=== PATIENT | female | born 1960 | race Caucasian/White ===

== ENCOUNTER 2019-11-16 16:10 | Outpatient (CLI) | payer OTHER, SELFPAY ==
--- NOTE | ~2019-11-16 | CT_ITS ---
EXAMINATION: CT lung screening DATE: 11/16/2019 16:32 INDICATION: Personal history of tobacco dependence, prior smoker with 35 pack year history TECHNIQUE: Computed tomography (CT) of the chest was performed without intravenous contrast. The dose -length product (DLP) was 155.70 mGy-cm. Automated exposure control and iterative reconstruction tech Loehmann'sque were employed. COMPARISON: None FINDINGS: There is mild emphysema. No suspicious pulmonary nodules are identified. Minimal airspace o pacities are present in the lingula and left lower lobe which are likely infectious or inflammatory. There is no pleural effusion or pneumothorax. No pathologically enlarged thoracic lymph nodes are hardy ntified. The heart size is normal. There is mild thoracic spondylosis. IMPRESSION: 1. Lung-RADS category 1: Negative. Continue annual screening with noncontrast low-dose chest CT in 12 months. Reviewed, dictated and finalized at location A. 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 Lung-RADS category 1: Negative. Continue annual screening with noncontrast l ow-dose chest CT in 12 months.
== END 2019-11-16 16:11 | disposition home or self-care (01) ==
LOC: ANHIMG 16:13
PROVIDERS: PCP Emergency Medicine; Visit Provider Family Medicine
DX: Z12.2 Encounter for screening for malignant neoplasm of respiratory organs (principal); Z87.891 Personal history of nicotine dependence
CPT/HCPCS: G0297

== ENCOUNTER 2019-12-29 16:10 | Outpatient (CLI) | payer OTHER, SELFPAY ==
--- NOTE | ~2019-12-29 | MM_ITS ---
EXAMINATION: MM screening [facility] BI w alexis HISTORY: Screening mammogram TECHNIQUE: Craniocaudal and mediolateral oblique 3-D tomosynthesis images were obtained and synthetic 2-D images were generated. CAD analysis was submitted and interpreted. COMPARISON: No prior mammogram is available for comparison at this institution. BREAST PARENCHYMAL COMPOSITION: There are scattered areas of fibroglandular density. FINDINGS: Stable fibroglandular asymmetry. There is no evidence of suspicious mass, calcification, or architectural distortion to suggest malignancy in either breast. There has been no suspicious inte rval change. IMPRESSION: 1. No mammographic evidence of malignancy. 2. Recommend routine screening mammography in one year. BI-RADS Category 2: Benign finding(s). Reviewed, dictated and finalized at location A. HAND FISHING VESSEL
== END 2019-12-29 16:11 | disposition home or self-care (01) ==
LOC: ANHIMG 16:13
PROVIDERS: PCP Emergency Medicine; Visit Provider Emergency Medicine
DX: Z12.31 Encounter for screening mammogram for malignant neoplasm of breast (principal)
CPT/HCPCS: 77063; 77067

== ENCOUNTER 2021-02-06 16:14 | Outpatient (CLI) | payer OTHER, SELFPAY | END 2021-02-06 16:15 | disposition home or self-care (01) | LOC: ANHCOVIDVC 16:14 | PROVIDERS: PCP Emergency Medicine | DX: Z23 Encounter for immunization (principal) | CPT/HCPCS: 0001A; 91300 ==

== ENCOUNTER 2021-02-27 16:15 | Outpatient (CLI) | payer OTHER, SELFPAY | END 2021-02-27 16:16 | disposition home or self-care (01) | LOC: ANHCOVIDVC 16:15 | PROVIDERS: PCP Emergency Medicine | DX: Z23 Encounter for immunization (principal) | CPT/HCPCS: 0002A; 91300 ==

== ENCOUNTER 2021-04-21 08:20 | Outpatient (CLI) | payer OTHER, SELFPAY ==
--- NOTE | ~2021-04-21 | XR_ITS ---
EXAMINATION: XR chest 2V DATE: 04/21/2021 08:32 INDICATION: Shortness of breath TECHNIQUE: PA and lateral views of the chest are obtained. COMPARISON: 09/13/2019 FINDINGS: The lungs are free of acute opacities. There is no pleural effusion or pneumothorax. The ca rdiomediastinal silhouette is normal. There is mild thoracic spondylosis. IMPRESSION: 1. No acute cardiopulmonary abnormality. Reviewed, dictated and finalized at location A.
== END 2021-04-21 08:21 | disposition home or self-care (01) ==
PROVIDERS: PCP Emergency Medicine; Visit Provider Nurse Practitioner Family
DX: R06.02 Shortness of breath (principal); R09.89 Other specified symptoms and signs involving the circulatory and respiratory systems; J43.1 Panlobular emphysema
CPT/HCPCS: 71046

== ENCOUNTER 2021-06-12 16:48 | Outpatient (CLI) | payer OTHER, SELFPAY ==
--- NOTE | ~2021-06-12 | MM_ITS ---
EXAMINATION: MM screening [facility] BI w alexis HISTORY: Screening mammogram TECHNIQUE: Craniocaudal and mediolateral oblique 3-D tomosynthesis images were obtained and synthetic 2-D images were generated. CAD analysis was submitted and interpreted. COMPARISON: 12/29/2019, 08/27/2018, 08/13/2017 BREAST PARENCHYMAL COMPOSITION: There are scattered areas of fibroglandular density. FINDINGS: There is no evidence of suspicious mass, calcification, or architectural distortion to sugg est malignancy in either breast. There has been no suspicious interval change. IMPRESSION: 1. No mammographic evidence of malignancy. 2. Recommend routine screening mammography in one year. BI-RADS Category 1: Negative Reviewed, dictated and finalized at location A.
== END 2021-06-12 16:49 | disposition home or self-care (01) ==
LOC: ANHIMG 16:49
PROVIDERS: PCP Emergency Medicine; Visit Provider Emergency Medicine
DX: Z12.31 Encounter for screening mammogram for malignant neoplasm of breast (principal)
CPT/HCPCS: 77063; 77067

== ENCOUNTER 2021-09-19 15:43 | Outpatient (CLI) | payer OTHER, SELFPAY ==
--- NOTE | ~2021-09-19 | XR_ITS ---
EXAMINATION: XR foot RT min 3V DATE: 09/19/2021 16:05 INDICATION: Right foot pain. TECHNIQUE: 4 views of right foot were obtained. COMPARISON: None. FINDINGS: Bone alignment is normal. No acute fracture. There is mild osteoarthritis of second metatar sophalangeal joint and some the interphalangeal joints. There are enthesophytes at the posterior and plantar aspects of calcaneal tuberosity. IMPRESSION: 1. Mild polyarticular osteoarthritis. Reviewed, dictated and finalized at location A.
== END 2021-09-19 15:44 | disposition home or self-care (01) ==
LOC: ANHIMG 15:49
PROVIDERS: PCP Family Medicine; Visit Provider Nurse Practitioner
DX: M19.071 Primary osteoarthritis, right ankle and foot (principal)
CPT/HCPCS: 73630

== ENCOUNTER 2022-04-02 16:56 | Outpatient (CLI) | payer OTHER, SELFPAY ==
--- NOTE | ~2022-04-02 | DEXA_ITS ---
Bone Density Report Name: EARL ROCA Age: 61 Sex: Female Ethnicity: White Date of : 1960 Indication: postmenopausal; screening for osteoporosis; prior fracture; Referring Provider: NUBIA BRADFORD Study: Bone densitometry was performed. Exam Date: April 02, 2022 Accession number: [id number] Bone Density: Region BMD T-score Z-score Classification AP Spine(L1-L4) 0.986 -0.6 1.0 Normal Femoral Neck (Left) 0.708 -1.3 0.1 Osteopenia Total Hip (Left) 0.964 0.2 1.3 Normal Femoral Neck (Right) 0.720 -1.2 0.2 Osteopenia Total Hip (Right) 0.949 0.1 1.1 Normal Total Hip Mean 0.956 0.2 1.2 Normal World Health Organization criteria for BMD impression classify patients as: Normal (T-score at or above -1.0), Osteopenia (T-score between -1.0 and -2.5), or Osteoporosis (T-score at or below -2.5). 10-year Fracture Risk(1): Major Osteoporotic Fracture 15% Hip Fracture 1.3% Reported Risk Factors: [place] (), Neck BMD=0.708, BMI=35.7, previous fracture, alcohol use (1) FRAX(R) Version 3.08. Fracture probability calculated for an untreated patient. Fracture probability may be lower if the patient has received treatment. Previous Exams: Region Exam Age BMD T-score BMD Change BMD Change Date g/cm2 vs Baseline vs Previous AP Spine (L1-L4) 04/02/2022 61 0.986 -0.6 -0.012 (-1.2%) -0.012 (-1.2%) 03/22/2019 58 0.998 -0.4 Total Hip(Left) 04/02/2022 61 0.964 0.2 0.000 (0.0%) 0.000 (0.0%) 03/22/2019 58 0.964 0.2 Total Hip(Right) 04/02/2022 61 0.949 0.1 0.046 (5.1%)* 0.046 (5.1%)* 03/22/2019 58 0.903 -0.3 *Denotes significance at 95% confidence level, LSC for AP Spine = 0.022 g/cm2, LSC for Total Hip = 0.027 g/cm2 Clinical Information Provided by Patient: Has had a low trauma fracture Has 3 or more alcoholic drinks per day Has used the following medications: Vitamin D, Calcium Patient maximum height was 67 Menopause Age: 49 No regular weight bearing exercise Drinks caffeinated beverages Onset of menses at age 12 Number of children 0 Impression: The patient has low bone mass, based on the Left Femoral Neck T-score. The patient has an estimated ten-year risk of hip fracture of 1.3% and an estimated ten-year risk of major fracture of 15%, based on the WHO FRAX algorithm. The patient has risk factors, including: excessive alcohol use, previous fracture. No significant bone loss was observed.
== END 2022-04-02 16:57 | disposition home or self-care (01) ==
PROVIDERS: PCP Family Medicine; Visit Provider Nurse Practitioner
DX: Z78.0 Asymptomatic menopausal state (principal); M85.89 Other specified disorders of bone density and structure, multiple sites
CPT/HCPCS: 77080

== ENCOUNTER → 2023-01-24 11:36 | Outpatient (CLI) | payer OTHER, SELFPAY ==
--- NOTE | ~2023-01-24 | XR_ITS ---
Lumbosacral Spine: AP, oblique, and lateral views Clinical History: Pain Findings: The normal lordotic curve is maintained. The vertebral bodies and posterior elements are i ntact. The intervertebral disc spaces are preserved. Facet joint degenerative changes are present fr om L2 through S1. The sacroiliac joints are normally outlined. Impression: Facet joint degenerative changes, as above. Reviewed, dictated and finalized at location . 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
== END ==
PROVIDERS: PCP Family Medicine; Visit Provider Nurse Practitioner
DX: M54.50 Low back pain, unspecified (principal)
CPT/HCPCS: 72110

== ENCOUNTER 2024-03-05 14:28 | Emergency (ER) | payer OTHER, SELFPAY ==
--- NOTE | ~2024-03-05 | XR_ITS ---
EXAMINATION: XR chest 2V DATE: 03/05/2024 14:47 INDICATION: Chest pain and dizziness TECHNIQUE: PA and lateral views of the chest were obtained. COMPARISON: None FINDINGS: Mild linear discoid atelectasis at the lingula. No other airspace opacities, pulmonary edema, pleural effusion or pneumothorax. The cardiomediastinal silhouette is normal. Moderate thoracic spondylosis with mild anterior wedging of a few mid thoracic vertebral bodies. IMPRESSION: 1. Mild lingular discoid atelectasis. Reviewed, dictated and finalized at location A.
--- NOTE | ~2024-03-05 | CT_ITS ---
EXAMINATION: CT brain wo con DATE: 03/05/2024 17:46 INDICATION: left arm tinglign . TECHNIQUE: Computed tomography (CT) of the head was performed without intravenous contrast. The mA wa s adjusted according to patient size. Iterative reconstruction technique was employed. The dose-lengt h product was 605.33 mGy-cm. COMPARISON: None. FINDINGS: No acute intracranial hemorrhage or extra-axial fluid collection. No hydrocephalus, mass, or herniation. No acute ischemic infarct. Unremarkable dural venous sinus attenuation. No acute osseous abnormality. Retention cyst/polyp in the inferior left maxillary sinus. Small retention cyst or polyp in a posteri or ethmoid air cell. The remaining aerated spaces are clear. IMPRESSION: No acute intracranial process. Reviewed, dictated and finalized at location K.
--- NOTE | 2024-03-05 14:29 | ECG_ITS ---
Measurements Intervals [place] Rate: 76 P: 49 NE: 152 QRS: -7 QRSD: 91 T: 31 QT: 388 QTc: 437 Interpretive Statements SINUS RHYTHM NO PREVIOUS ECG AVAILABLE FOR COMPARISON Electronically Signed On 03-06-2024 13:21:13 CDT by Anibal Mahoney M.D.
[2024-03-05 14:37] VITALS: BP 172/79; PULSE 77; RESP 18; TEMP 36.4; O2SAT 100
[2024-03-05 14:58] VITALS: BP 145/78; PULSE 79; RESP 14; O2SAT 98
[2024-03-05 15:13] LABS: Basophils Percent Auto 0.5 % (0.2-1.2); Eosinophils Absolute Auto 0.1 K/mm3 (0-0.3); Eosinophils Percent Auto 1.2 % (0-4.4); Hematocrit 46.4 % (37.0-47.0); Hemoglobin 15.2 g/dL (12.0-15.0); Immature Granulocyte Absolute 0.03 K/mm3 (0.00-0.031); Immature Granulocyte Percent A 0.4 % (0-0.5); Lymphocytes Absolute Auto 2.17 K/mm3 (0.9-3.2); Lymphocytes Percent Auto 29.3 % (18.3-44.2); Mean Corpuscular HGB Conc 32.8 g/dl (32-36); Mean Corpuscular Hemoglobin 31.3 pg (26-34); Mean Corpuscular Volume 95.5 fl (80-100); Mean Platelet Volume 9.9 fl (7.4-10.4); Monocytes Absolute Auto 0.7 K/mm3 (0.1-0.6); Monocytes Percent Auto 8.8 % (2.6-8.5); Neutrophils Absolute Auto 4.4 K/mm3 (1.3-6.7); Neutrophils Percent Auto 59.8 % (45.5-73.1); Platelet Count Result 270 k/mm3 (150-375); Red Blood Count 4.86 M/mm3 (4.2-5.4); Red Cell Distribution Width 13.3 % (11.5-14.5); White Blood Count 7.4 K/mm3 (4.5-10.0)
[2024-03-05 15:16] VITALS: BP 128/72; PULSE 73; RESP 19; O2SAT 96
[2024-03-05 15:24] LABS: Alanine Aminotransferase 35 U/L (6-35); Albumin Level 5.1 g/dL (3.5-5.1); Alkaline Phosphatase 65 U/L (38-126); Anion Gap 8 mmol/L (4-12); Aspartate Amino Transferase 31 U/L (14-36); Bilirubin,Total 0.6 mg/dL (0.2-1.3); Blood Urea Nitrogen 19 mg/dL (7-17); Carbon Dioxide 29 mmol/L (22-30); Chloride 103 mmol/L (98-107); Estimated CRCL calculation 84 ml/min; Estimated Glomerular Filt Rate > 60; Glucose 102 mg/dL (65-110); Lipase 71 U/L (23-300); Potassium 3.6 mmol/L (3.4-5.0); Sodium 140 mmol/L (137-145)
[2024-03-05 15:26] LABS: INR 0.9; Prothrombin Time 12.4 Seconds (11.1-14.7)
[2024-03-05 15:27] LABS: Partial Thromboplastin Time 27.1 Seconds (22.3-36.8)
[2024-03-05 15:36] LABS: Troponin I < 0.012 ng/mL (0.000-0.034)
[2024-03-05 16:59] VITALS: BP 146/82; PULSE 72; RESP 19; O2SAT 96
--- NOTE | 2024-03-05 17:29 | ECG_ITS ---
Measurements Intervals [place] Rate: 72 P: 36 NC: 146 QRS: -12 QRSD: 87 T: 41 QT: 385 QTc: 421 Interpretive Statements SINUS RHYTHM COMPARED TO ECG 03/05/2024 14:34:23 NO SIGNIFICANT CHANGES Electronically Signed On 03-06-2024 13:22:16 CDT by Anibal Mahoney M.D.
--- NOTE | 2024-03-05 17:51 | ED.GENADULT ---
HPI - General Adult General Chief complaint: Chest Pain Stated complaint: CP, dizzy, SINGH Time Seen by Provider: 03/05/24 16:28 History of Present Illness HPI narrative: This is a 63-year-old female presenting with multiple complaints. Patient says she has been dizzy for several weeks. Then earlier today she started to get tingling in her left arm while she is work. Patient said this made her scared and she got very worried. She then developed sharp pain in between her shoulder blades. Patient is concerned because she read about heart attack symptoms in women was concerned she might be having a heart attack. Patient's symptoms have all resolved by time she got to the emergency department. 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 patient is also very concerned about her blood pressure has been checking it 3-4 times per day instead it is all over the place. Patient denies fevers chills productive cough, exertional component diaphoresis or vomiting. Related Data Home Medications Medication Instructions Recorded Confirmed vitamin B complex (B 1 tablet PO DAILY 12/13/19 09/25/23 Complex-Vitamin B12 tablet) calcium carbonate 600 mg-vitamin tablet PO 08/31/21 09/25/23 D3 1,000 unit-vitamin K2 90 mcg tab cholecalciferol (vitamin D3) 25 50 mcg PO DAILY 08/31/21 09/25/23 mcg (1,000 unit) capsule Allergies Allergy/AdvReac Type Severity Reaction Status Date / Time iodine Allergy Unknown n/a Verified 09/25/23 15:43 [place] AdvReac Intermediate SWELLING Uncoded 09/25/23 15:43 [facility] Past Medical History Medical History Breast pain COPD (chronic obstructive pulmonary disease) Emphysema of lung Former smoker GERD (gastroesophageal reflux disease) HLD (hyperlipidemia) HTN (hypertension) Lesion of left nipple Plantar fasciitis Surgical History Surgical History History of total right knee replacement (~03/2021) Family History Family History Grandparent Carcinoma of colon Social History Social History Social History: 1ppd x 35 years quit 2013 Smoking status: Former smoker Smoking end date: 12/01/13 Alcohol intake: current Substance use: never Substance use type: does not use Lack of Transportation: No Lack of Food: Never True Current Housing: I Have Housing Concerned About Future Housing: No Difficulty Paying Gas/Electric Bills: No Difficulty Paying for Meds: No Currently Unemployed: No Difficulty w/ Childcare or Family Care: No Living arrangements: with family Occupation/Education: occupation Gender identity (if verbalized by the patient): Female Exam Narrative: APPEARANCE: No apparent distress. Head: atraumatic. EYES: EOMI, NOSE: Atraumatic NECK: Trachea midline RESPIRATORY: No increased rate of breathing Clear to auscultation CARDIOVASCULAR: RRR, no peripheral edema ABDOMINAL: Non-distended MUSCULOSKELETAl: No obvious deformities NEURO: Alert. Cranial nerves 2-12 grossly intact. Sensation light touch, motor function cerebellar function intact for 4/4 extremities. Gait exam was normal. SKIN:: Warm, dry. Normal color PSYCHIATRIC: Normal affect Course Vital Signs Vital signs: Vital Signs Temperature 97.6 F 03/05/24 14:37 Pulse Rate 77 03/05/24 14:37 Respiratory Rate 18 03/05/24 14:37 Blood Pressure 172/79 H 03/05/24 14:37 Pulse Oximetry 100 03/05/24 14:37 Oxygen Delivery Room Air 03/05/24 14:37 Temperature 97.6 F 03/05/24 14:37 Pulse Rate 72 03/05/24 16:59 Respiratory Rate 19 03/05/24 16:59 Blood Pressure 146/82 H 03/05/24 16:59 Pulse Ox
[2024-03-05 18:02] LABS: Troponin I < 0.012 ng/mL (0.000-0.034)
[2024-03-05 20:13] VITALS: BP 132/66; PULSE 78; RESP 15; O2SAT 100
== END 2024-03-05 20:14 | disposition home or self-care (01) ==
PROVIDERS: Emergency Provider Emergency Medicine; PCP Family Medicine
DX: R42 Dizziness and giddiness (principal); I10 Essential (primary) hypertension; K21.9 Gastro-esophageal reflux disease without esophagitis; E78.5 Hyperlipidemia, unspecified; Z96.651 Presence of right artificial knee joint; Z87.891 Personal history of nicotine dependence; J44.9 Chronic obstructive pulmonary disease, unspecified
CPT/HCPCS: 36415; 70450; 71046; 80053; 83690; 84484; 85025; 85610; 85730; 93005; 99284